=== PATIENT | female | born 1965 | race Hispanic/Latino ===

== ENCOUNTER 2019-02-10 16:05 | Emergency (ER) | payer OTHER ==
[2019-02-10] MEDS ORDERED: Oxycodone/Acetaminophen 5/325 mg Tab PO ONE (16:40)
--- NOTE | 2019-02-10 16:41 | ED PDOC ---
Lower Extremity Pain/Injury Time Seen by Provider: 02/10/19 16:15 Chief Complaint (Nursing): Lower Extremity Problem/Injury Chief Complaint (Provider): Right Leg/Hip Pain History Per: Patient History/Exam Limitations: no limitations Onset/Duration Of Symptoms: Other (acute on chronic) Additional Complaint(s): 54 year old female with a past history of chronic right hip/back pain, presents to the emergency department with persistent pain to her right hip and hamstring. Patient states she was walking then tripped on her pant leg earlier today. She did not fall as she caught herself but reports hearing a "pop" with worsening pain immediately afterwards to the hamstring area. She took prescribed Vicodin at 1400 prior to arrival and has been able to ambulate with cane thus far. Patient was seen at an urgent care then referred to ED for further evaluation. Patient requesting an MRI upon arrival to ED. Otherwise: (-) other injury, (-) saddle anesthesia, (-) incontinence (-) urinary complaints, (-) fever, (-) SOB/cough, (-) swelling of foot (-) calf tenderness (-) abdominal pain, or (-) chest pain. Per MRI report from fall 2017 in patient's possession, patient has a labral tear, partial hamstring tear, OA, and impingement syndrome of the right hip. PCP: Dr. Simmons in [facility] Past Medical History Reviewed: Historical Data, Nursing Documentation, Vital Signs Vital Signs: Last Vital Signs Temp 98.1 F 02/10/19 16:10 Pulse 96 H 02/10/19 16:10 Resp 16 02/10/19 16:10 BP 132/77 02/10/19 16:10 Pulse Ox 100 02/10/19 16:10 - Medical History Other PMH: endometriosis - Surgical History Other surgeries: laparoscopy; hysterectomy - Family History Family History: States: Unknown Family Hx - Social History Current smoker - smoking cessation education provided: Yes Alcohol: Social Drugs: Denies - Home Medications Home Medications: Ambulatory Orders Medication Instructions Recorded Acetaminophen [Acetaminophen 8 650 mg PO Q8 PRN #21 tablet.er 02/10/19 Hour] Meloxicam [Mobic] 15 mg PO DAILY PRN #10 tab 02/10/19 - Allergies Allergies/Adverse Reactions: Allergies Allergy/AdvReac Type Severity Reaction Status Date / Time No Known Allergies Allergy Verified 02/10/19 16:10 Review of Systems ROS Statement: Except As Marked, All Systems Reviewed And Found Negative Cardiovascular: Negative for: Chest Pain Gastrointestinal: Negative for: Abdominal Pain Genitourinary Female: Negative for: Dysuria, Incontinence, Hematuria Musculoskeletal: Positive for: Leg Pain (right hip and hamstring pain). Negative for: Back Pain, Other (saddle anesthesia) Physical Exam - Reviewed Nursing Documentation Reviewed: Yes Vital Signs Reviewed: Yes - Physical Exam Comments: GENERAL APPEARANCE: Patient is awake, alert, oriented x 3, in no acute distress. Eating applesauce, pacing in exam room. SKIN: Warm, dry; (-) cyanosis. NECK: Supple, FROM ENT: Mucus membranes moist. Airway patent, (-) stridor. CHEST AND RESPIRATORY: (-) rales, (-) rhonchi, (-) wheezes; breath sounds equal bilaterally. Respirations even and nonlabored. HEART AND CARDIOVASCULAR: (-) irregularity LOWER EXTREMITY: diffuse tenderness to posterior right hip and proximal thigh. (+) decreased ROM secondary to pain. (+) sensation and capillary refill intact. (-) calf tenderness. (+) distal pulse intact. NEURO: Mental status as above. Speech: clear. (-) facial asymmetry (-) aphasia - ECG O2 Sat by Pulse Oximetry: 100 (RA) Pulse Ox Interpretation: Normal Medical Decision Making Medical Decision Making: Initial Impression: acute on chronic hip/hamstring pain; probable hamstring injury Initial Plan: * Flexeril 10mg PO (not driving home) * Percocet 5/325mg PO * Patient seen at bedside by ED MD Gamble [id number] On re-evaluation, patient states " I care less about the pain" and is requesting discharge. On exam, patient remains AAOx3, in no acute distress. Ambulatory in ED with cane. Vitals stable. [place], patient with extensive use of narcotics with recent prescriptions. Will be discharged with Mobic and Tylenol. Lab/Diagnostic results d/w the patient in great detail. Diagnosis of acute on chronic hip pain, hamstring injury d/w the patient. Based on history, exam and diagnostic results, plan will be for outpatient follow up with ortho/pmd. Patient instructed to follow-up with pmd / referral provided / the clinic in 1- 2 days without fail. Advised to take medication as prescribed. Return to the emergency room at any time for any new or worsening symptoms. Patient states she fully agrees with and understands discharge instructions. States that she agrees with the plan and disposition. Verbalized and repeated discharge instructions and plan. I have given the patient opportunity to ask any additional questions. Scribe Attestation: Documented by Fatmata Padgett, acting as a scribe for Umm Shields PA-C. Provider Scribe Attestation: All medical record entries made by the Scribe were at my direction and personally dictated by me. I have reviewed the chart and agree that the record accurately reflects my personal performance of the history, physical exam, me dical decision making, and the department course for this patient. I have also personally directed, reviewed, and agree with the discharge instructions and disposition. Disposition - Clinical Impression Clinical Impression: Chronic hip pain, Hamstring injury - Patient ED Disposition Is Patient to be Admitted: No Counseled Patient/Family Regarding: Studies Performed, Diagnosis, Need For Followup, Rx Given - Disposition Referrals: Maria G Momin MD [Staff Provider] - Disposition: Routine/Home Disposition Time: 17:25 Condition: STABLE Additional Instructions: The emergency medical care you received today was directed at your acute symptoms. If you were prescribed any medication, please fill it and take as directed. It may take several days for your symptoms to resolve. Return to the Emergency Department if your symptoms worsen, do not improve, or if you have any other problems. Please contact your doctor in 2 days for re-evaluation and follow up / or call one of the physicians/clinics you have been referred to that are listed on the Patient Visit Information form that is included in your discharge packet. Bring any paperwork you were given at discharge with you along with any medications you are taking to your follow up visit. Our treatment cannot replace ongoing medical care by a primary care provider (PCP) outside of the emergency department. Prescriptions: Acetaminophen [Acetaminophen 8 Hour] 650 mg PO Q8 PRN #21 tablet.er PRN Reason: Pain, Moderate (4-7) Meloxicam [Mobic] 15 mg PO DAILY PRN #10 tab PRN Reason: Pain, Moderate (4-7) Instructions: Labral Tear of the Hip, Chronic Pain (DC), Lower Extremity Muscle Strain, Hip Pain, Hamstring Injury, Hamstring Stretches Forms: [facility] (Turkmen) Print Language: SURINAMESE - POA Present On Arrival: None
[2019-02-10 18:02] VITALS: BP 135/88; PULSE 89; RESP 18; TEMP 98.2
[2019-02-10 21:39] VITALS: O2SAT 100
== END 2019-02-10 18:01 | disposition home or self-care (01) ==
LOC: H.ER 16:05
DX: M25.551 Pain in right hip (principal); G89.29 Other chronic pain